=== PATIENT | female | born 1985 | race Caucasian/White ===

== ENCOUNTER 2020-02-09 16:27 | Emergency (ER) | payer OTHER, SELFPAY ==
[2020-02-09 16:39] VITALS: BP 133/81; PULSE 68; RESP 16; TEMP 37; O2SAT 100
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
[2020-02-09] MEDS: SILVER SULFADIAZINE 1% CR 50 GM JAR (*BKC) 1 APPLIC TOPICAL (17:04)
== END 2020-02-09 17:21 | disposition home or self-care (01) ==
PROVIDERS: Emergency Provider Nurse Practitioner Family
DX: T22.212A Burn of second degree of left forearm, initial encounter (principal); X13.1XXA Other contact with steam and other hot vapors, initial encounter; Y93.G3 Activity, cooking and baking
CPT/HCPCS: 16020; 99213; A9270; G0463

== ENCOUNTER 2020-08-06 14:56 | Emergency (ER) | payer OTHER, SELFPAY ==
[2020-08-06 15:26] VITALS: BP 124/68; PULSE 72; RESP 16; TEMP 36.4; O2SAT 99
--- NOTE | 2020-08-06 15:35 | ED.GENADULT ---
HPI - General Adult General Chief complaint: Skin/Abscess/Foreign Body Stated complaint: POISON TABITHA Time Seen by Provider: 08/06/20 15:35 Source: patient and RN notes reviewed Mode of arrival: ambulatory Limitations: no limitations History of Present Illness HPI narrative: 35-year-old female presents with complaints of red, raised, itching, burning, rash to right forearm and mid forehead for 1 day. Tyra reports outside doing yard work on 08/03/20, 2 days later rash appeared and spreading. Calamine lotion without relief. Denies new detergent, personal hygiene products, or laundry detergent. No new foods or medications. No swelling, bleeding, or drainage. Denies fever, headaches, malagia, facial swelling, or tongue swelling. Tolerating po intake well. Denies chest pain or dyspnea. LMP hysterectomy. Remains active. The patient reports she was diagnosed with COVID-19 May 16, 2020. The patient reports she is not waiting for the results of a COVID-19 lab test. The patient reports she do not have chills, weakness, or fatigue. The patient reports she do not have a new or worsening cough or shortness of breath. The patient reports she do not have any rhinorrhea, congestion, sore throat, loss of taste or smell, nausea, vomiting, abdominal pain, and diarrhea. Denies recent traveling. Denies concerns for COVID-19 or exposures been home with limited outdoor exposure except for essential household needs, work, and return home. At this time, patient is not suspected of having COVID-19. Some parts of this dictation were generated by voice recognition software and may contain typographical and/or grammatical inaccuracies. Related Data Allergies Allergy/AdvReac Type Severity Reaction Status Date / Time No Known Allergies Allergy Mild Verified 02/09/20 16:43 Review of Systems Review of Systems: Narrative: CONSTITUTIONAL: Denies fever, chills, sweats. EYES: Denies visual changes, redness, discharge. ENT: Denies rhinorrhea, congestion, sore throat, otalgia. CARDIOVASCULAR: Denies chest pain, palpitations, edema. RESPIRATORY: Denies dyspnea, wheezing, cough. GASTROINTESTINAL: Denies abdominal pain, nausea, vomiting, diarrhea. SKIN: Complains of red, burning, and itching rash to RT forearm and mid forehead. Denies drainage. MUSCULOSKELETAL: Denies acute back pain, joint pain, or myalgia. NEUROLOGIC: Denies numbness or focal weakness. PSYCHIATRIC: Denies anxiety or depression. All other systems reviewed are negative, except as documented in HPI. [facility] Past Medical History Medical History (Updated 08/06/20 @ 15:49 by KIAN Mclain) Carpal tunnel syndrome Cervical cancer Surgical History Surgical History (Updated 02/09/20 @ 17:31 by KIAN Mclain) History of ankle surgery LT History of carpal tunnel surgery Bilateral History of hysterectomy History of right knee surgery Meniscus Family History Family History (Updated 08/06/20 @ 15:47 by KIAN Mclain) Father Alive and well Mother Cervical cancer Social History Social History (Updated 08/06/20 @ 15:47 by KIAN Mclain) Smoking status: Never smoker Tobacco type: cigarettes Second hand tobacco smoke exposure: No Alcohol intake: current Substance use: never Living arrangements: with family Occupation/Education: occupation Gender identity (if verbalized by the patient): Female Sexual Orientation (if Verbalized by the Patient): Straight or Heterosexual Comments At time of signature, agree with nurse past medical, surgical, social, and family history. There is no relevant family history pertinent to the presenting complaint. Exam Narrative: Exam Narrative: GENERAL: This is a well-nourished, well-developed patient, in no apparent distress. Talks in full sentences and ambulates with steady gait without dyspnea. HEAD: Normocephalic, atraumatic. EYES: PERRL. Sclera clear/white. Vision is grossly i
[2020-08-06] MEDS: methylPREDNISolone SOD SUCC 125 MG VIAL IM (15:46)
== END 2020-08-06 16:06 | disposition home or self-care (01) ==
PROVIDERS: Emergency Provider Nurse Practitioner Family; PCP Nurse Practitioner Family
DX: L23.7 Allergic contact dermatitis due to plants, except food (principal); Z85.41 Personal history of malignant neoplasm of cervix uteri
CPT/HCPCS: 96372; 99213; G0463; J2930

== ENCOUNTER 2021-03-01 10:13 | Emergency (ER) | payer OTHER, SELFPAY ==
[2021-03-01 10:22] VITALS: BP 122/81; PULSE 67; RESP 16; TEMP 36.6; O2SAT 100
--- NOTE | 2021-03-01 10:22 | ED.SKABFB ---
HPI - Skin/Abscess/Foreign Bdy General Chief complaint: Skin/Abscess/Foreign Body Stated complaint: rt thumb pos infection Time Seen by Provider: 03/01/21 10:22 Source: patient and RN notes reviewed Mode of arrival: ambulatory Limitations: no limitations History of Present Illness HPI narrative: 36-year-old female presents to the [facility] with complaints of pain and swelling to the right thumb. States on , 3 days ago poked herself with a paperclip. Had been applying Neosporin. Has full range of motion, tenderness and swelling noted lateral thumb. Fluctuant area. Related Data Allergies Allergy/AdvReac Type Severity Reaction Status Date / Time No Known Allergies Allergy Mild Verified 03/01/21 10:33 Review of Systems Review of Systems: All systems reviewed & are unremarkable except as noted in HPI and below Constitutional: Constitutional: Reports no additional constitutional complaints, Denies chills and Denies fever(s) Eyes: Eyes: Reports no additional eye complaints ENT: Reports system reviewed and no additional complaints, except as documented Cardiovascular: Cardiovascular: Reports no additional cardiovascular complaints Respiratory: Respiratory: Reports no additional respiratory complaints Musculoskeletal: Musculoskeletal: Reports no additional musculoskeletal complaints Integumentary/Breasts: Skin/Breast: Reports as per HPI and Reports erythema (right lateral thumb) Neurologic: Reports system reviewed and no additional complaints, except as documented Psychiatric: Psychiatric: Reports no additional psychiatric complaints Allergic/Immunologic: Allergic/Immunologic: Reports no additional allergic/immunologic complaints [facility] Past Medical History Medical History (Updated 03/01/21 @ 10:54 by Maribel Kasper) Carpal tunnel syndrome Cervical cancer Surgical History Surgical History History of ankle surgery LT History of carpal tunnel surgery Bilateral History of hysterectomy History of right knee surgery Meniscus Family History Family History Father Alive and well Mother Cervical cancer Social History Social History Smoking status: Never smoker Tobacco type: cigarettes Second hand tobacco smoke exposure: No Alcohol intake: current Substance use: never Gender identity (if verbalized by the patient): Female Sexual Orientation (if Verbalized by the Patient): Straight or Heterosexual Comments At the time of my signature, I reviewed and agree with the nursing past medical, surgical, social, and family history. There is no relevant family history pertinent to the patient complaint. Exam Const: General: healthy appearing, no acute distress and alert Nutritional Appearance: well nourished Orientation/consciousness: patient oriented x3 Limitations: no limitations HENMT: Head: normal to inspection Eyes: Conjunctivae: conjunctivae normal Pupils: Equal, round and reactive pupils present Neck: Neck: normal visual inspection Chest: Chest palpation & inspection: normal inspection of the chest Resp: Effort & Inspection: normal respiratory effort Cardio: Rate: regular rate Back/Spine/Pelvis: Back: no CVA tenderness Skin: General skin exam: normal color Wounds: wounds noted Other: Right lateral distal thumb, paronychia Neuro: General: patient oriented x3, moves all extremities, no meningeal signs and no focal motor deficits Speech: normal speech Gait exam (Neuro): Normal gait present Extrem: General: normal to inspection Psych: Appearance: grossly normal and well kempt Mental Status: mental status grossly normal Affect: normal affect Attitude: cooperative Thought content: Yes Normal thought content present Course Course Emergency Course: Discharge instructions reviewed with patient, as well as provided in writing p
[2021-03-01] MEDS: LIDOCAINE HCL 1% LOCAL INJ 20 ML VIAL 5 ML INFILTRATE (10:55)
== END 2021-03-01 11:12 | disposition home or self-care (01) ==
PROVIDERS: Emergency Provider Nurse Practitioner
DX: L03.011 Cellulitis of right finger (principal); Z85.41 Personal history of malignant neoplasm of cervix uteri
CPT/HCPCS: 10060; 87070; 87075; 87205; 99213; G0463

== ENCOUNTER 2021-04-28 12:03 | Emergency (ER) | payer OTHER, SELFPAY ==
[2021-04-28 12:32] VITALS: BP 126/81; PULSE 81; RESP 16; TEMP 36.3; O2SAT 98
--- NOTE | 2021-04-28 13:23 | ED.FEMALEGU ---
HPI - Female Genitourinary General Chief complaint: Urogenital-Female Stated complaint: uti Time Seen by Provider: 04/28/21 13:23 Source: patient and RN notes reviewed Mode of arrival: ambulatory Limitations: no limitations History of Present Illness HPI Narrative: 36-year-old female presents concern for possible urinary tract infection. Reports several days ago she had burning with urination, she reports she since has had the frequent feeling of having to go without a full bladder. She denies back pain, abdominal pain, fever, nausea, vomiting. Reports history of urinary tract infection. MD elicited complaint: UTI Related Data Allergies Allergy/AdvReac Type Severity Reaction Status Date / Time Sulfa (Sulfonamide AdvReac Abdominal Verified 04/28/21 12:52 Antibiotics) Pain Review of Systems Review of Systems: CONSTITUTIONAL: Denies malaise, chills, sweats, or fever. GASTROINTESTINAL: Denies abdominal pain, nausea, vomiting, diarrhea, bloody, or mucous stools. GENITOURINARY: Denies dysuria or hematuria. Reports urine frequency, suprapubic pressure SKIN: Denies rash or itching. MUSCULOSKELETAL: Denies back pain or myalgia. All systems reviewed & are unremarkable except as noted in HPI and below PMFSH Past Medical History Medical History (Updated 04/28/21 @ 13:37 by Maribel Rooney NP) Carpal tunnel syndrome Cervical cancer Surgical History Surgical History History of ankle surgery LT History of carpal tunnel surgery Bilateral History of hysterectomy History of right knee surgery Meniscus Family History Family History Father Alive and well Mother Cervical cancer Social History Social History Smoking status: Never smoker Tobacco type: cigarettes Second hand tobacco smoke exposure: No Alcohol intake: current Substance use: never Gender identity (if verbalized by the patient): Female Sexual Orientation (if Verbalized by the Patient): Straight or Heterosexual Comments At time of signature, agree with nursing past medical, surgical, social and family history. There is no relevant family history pertinent to the presenting complaint Exam Narrative: GENERAL: Well-appearing, well-nourished, and in no acute distress. HEAD: Normocephalic. EYES: PERRLA, conjunctivae clear. NECK: Supple. No lymphadenopathy CHEST: Clear to auscultation. No respiratory distress. HEART: Regular rate and rhythm. ABDOMEN: Soft, nontender upon palpation, nondistended, normal active bowel sounds, no palpable or pulsatile masses, no guarding. No CVA tenderness SKIN: Warm, dry, no rash. NEURO: Alert and oriented x3. PSYCH: Normal mood and affect Course Course Emergency Course: Patient is aware of diagnosis, understands and agrees to treatment plan. Anticipatory guidance given. Patient agrees to follow-up as directed and is aware of reasons to seek care at the emergency department. Portions of this record may have been created with voice recognition software Vital Signs Vital signs: Vital Signs Temperature 97.3 F L 04/28/21 12:32 Pulse Rate 81 04/28/21 12:32 Respiratory Rate 16 04/28/21 12:32 Blood Pressure 126/81 04/28/21 12:32 Pulse Oximetry 98 04/28/21 12:32 Temperature 97.3 F L 04/28/21 12:32 Pulse Rate 81 04/28/21 12:32 Respiratory Rate 16 04/28/21 12:32 Blood Pressure 126/81 04/28/21 12:32 Pulse Oximetry 98 04/28/21 12:32 Reviewed. MDM - Female Genitourinary MDM Narrative Medical decision making narrative: Exam findings and UA show no acute concerns or changes; patient is non-toxic appearing and is in no distress. Patient is appropriate for outpatient treatment and follow-up. Differential Diagnosis Differential diagnosis: Likely urinary tract infection and cystitis Lab Data Labs: Urine Glucose Trac
== END 2021-04-28 13:45 | disposition home or self-care (01) ==
PROVIDERS: Emergency Provider Nurse Practitioner
DX: R30.0 Dysuria (principal)
CPT/HCPCS: 81003; 87086; 87088; 99213; G0463

== ENCOUNTER 2021-10-26 18:05 | Emergency (ER) | payer OTHER, SELFPAY ==
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
[2021-10-26 18:12] VITALS: BP 121/87; PULSE 73; RESP 16; TEMP 36.3; O2SAT 100
--- NOTE | 2021-10-26 18:46 | ED.UPPEXIN ---
HPI - Extremity Injury (Upper) General Chief Complaint: Extremity Injury, Upper Stated Complaint: Right Hand Pain Time Seen by Provider: 10/26/21 18:46 Source: patient Mode of arrival: ambulatory Limitations: no limitations History of Present Illness HPI narrative: 36-year-old female presented for complaint of right hand pain after injury today. She states she dropped a concrete landscaping block on the top of the right hand. Denies decreased range of motion, decreased sensation or numbness, tingling, or weakness of the hand. States pain is minimal. She states she wanted it evaluated because it started bruising quickly Related Data Home Medications Medication Instructions Recorded Confirmed fluoxetine 10 mg capsule cap 10/26/21 Allergies Allergy/AdvReac Type Severity Reaction Status Date / Time Sulfa (Sulfonamide AdvReac Abdominal Verified 04/28/21 12:52 Antibiotics) Pain Review of Systems Review of Systems: CONSTITUTIONAL: Denies body aches, fever, chills CARDIOVASCULAR: Denies chest pain, palpitations, or edema. RESPIRATORY: Denies cough or dyspnea. SKIN: Denies rash, itching, or wounds. MUSCULOSKELETAL: Reports right hand pain. NEUROLOGIC: Denies headache, numbness, tingling, or weakness. PSYCH: Denies depression or anxiety. All systems reviewed & are unremarkable except as noted in HPI and below PMFSH Past Medical History Medical History Carpal tunnel syndrome Cervical cancer Surgical History Surgical History History of ankle surgery LT History of carpal tunnel surgery Bilateral History of hysterectomy History of right knee surgery Meniscus Family History Family History Father Alive and well Mother Cervical cancer Social History Social History Smoking status: Never smoker Tobacco type: cigarettes Second hand tobacco smoke exposure: No Alcohol intake: current Substance use: never Gender identity (if verbalized by the patient): Female Sexual Orientation (if Verbalized by the Patient): Straight or Heterosexual Comments At time of signature, I have reviewed and agree with nursing past medical, surgical, social and family history unless otherwise noted. Please see nursing chart for further information. There is no relevant family history pertinent to the presenting complaint Exam Narrative: GENERAL: Well-appearing HEAD: Normocephalic, atraumatic. CHEST: Speaks in full sentences. No respiratory distress. HEART: Regular rate and rhythm. Normal and equal peripheral pulses. EXTREMITIES: Right hand has normal strength and sensation, normal range of motion. Moderate bruising over the dorsal surface of the hand. No edema. Mild point tenderness over distal 3rd metacarpal. No open wounds, skin tenting, or obvious deformity; alignment normal, pulse palpable and equal bilaterally, skin warm, dry, pink. Capillary refill less than 3 seconds. SKIN: Warm, dry, no rash. NEURO: Alert and oriented x3. PSYCH: Normal mood and affect Course Course Emergency Course: Patient is aware of diagnosis, understands and agrees to treatment plan. Anticipatory guidance given. Patient agrees to follow-up as directed and is aware of reasons to seek care at the emergency department. Portions of this record may have been created with voice recognition software Level of Care: Express Care Visit Vital Signs Vital signs: Vital Signs Temperature 97.3 F L 10/26/21 18:12 Pulse Rate 73 10/26/21 18:12 Respiratory Rate 16 10/26/21 18:12 Blood Pressure 121/87 10/26/21 18:12 Pulse Oximetry 100 10/26/21 18:12 Oxygen Delivery Room Air 10/26/21 18:12 Temperature 97.3 F L 10/26/21 18:12 Pulse Rate 73 10/26/21 18:12 Respiratory Rate 16 10/26/21
== END 2021-10-26 18:59 | disposition home or self-care (01) ==
PROVIDERS: Emergency Provider Nurse Practitioner Family; PCP Nurse Practitioner Adult Health
DX: S60.221A Contusion of right hand, initial encounter (principal); W20.8XXA Other cause of strike by thrown, projected or falling object, initial encounter; Z85.41 Personal history of malignant neoplasm of cervix uteri
CPT/HCPCS: 73130; 99213; G0463

== ENCOUNTER 2022-01-02 01:36 | Emergency (ER) | payer OTHER, SELFPAY ==
--- NOTE | ~2022-01-02 | XR_ITS ---
EXAMINATION: XR shoulder RT min 2V DATE: 01/02/2022 02:16 INDICATION: Right shoulder injury. TECHNIQUE: 4 views of right shoulder were obtained. COMPARISON: None. FINDINGS: Bone alignment is normal. No fracture. There is mild osteoarthritis of glenohumeral joint. Acromioclavicular joint is normal. IMPRESSION: 1. Mild glenohumeral joint osteoarthritis. Reviewed, dictated and finalized at location A.
--- NOTE | ~2022-01-02 | CT_ITS ---
EXAMINATION: CT cervical spine wo con DATE: 01/02/2022 02:13 INDICATION: Pain radiating from the right shoulder to the neck. Fall. TECHNIQUE: Computed tomography (CT) of the cervical spine was performed without intravenous contrast. Automated exposure control and iterative reconstruction technique were employed. The dose-length pro duct was 383.62 mGy-cm. COMPARISON: None FINDINGS: There is kyphosis of cervical spine. There is 5 degrees dextrocurvature of cervical spine. Vertebral body heights and intervertebral disc heights are normal. At C7-T1, there is moderate right and severe left facet joint osteoarthritis. No neural foraminal stenosis. There is mild central canal stenosis at C5-C6. IMPRESSION: 1. No fracture. 2. Mild cervical spondylosis. Reviewed, dictated and finalized at location A.
[2022-01-02 01:40] VITALS: BP 127/89; PULSE 78; RESP 16; TEMP 37; O2SAT 99
[2022-01-02] MEDS: HYDROcodone/acetaminophen (*CRX) 5-325 MG TABLET 1 TAB PO (01:48)
--- NOTE | 2022-01-02 01:58 | ED.FALL ---
HPI - Fall General Chief Complaint: Extremity Injury, Upper Stated Complaint: right shoulder pain after fall Time Seen by Provider: 01/02/22 01:38 Source: RN notes reviewed History of Present Illness HPI Narrative: Patient presents emergency room from home for right shoulder and neck pain. Patient states that just prior to arrival she was walking on the stairs when she tripped over the second to last stair and fell down 2 stairs states she landed down on her right shoulder notes pain in her right shoulder pain is worse with any movement of the right shoulder patient states she did hit her head but did not have any loss of consciousness denies any headache denies any chest pain shortness of breath or any other injuries. States pain is located in the right shoulder she denies any elbow or wrist Related Data Home Medications Medication Instructions Recorded Confirmed fluoxetine 10 mg capsule cap 10/26/21 Allergies Allergy/AdvReac Type Severity Reaction Status Date / Time Sulfa (Sulfonamide AdvReac Abdominal Verified 01/02/22 01:43 Antibiotics) Pain Review of Systems Review of Systems: Gen.: Denies fevers or chills ENT: Denies congestion Respiratory: Denies shortness of breath or cough CV: Denies chest pain GI: Denies abdominal pain nausea, emesis or diarrhea Musculoskeletal: See HPI Neuro: Denies numbness, tingling, weakness or focal weakness Skin: Denies rash Except as documented, all other systems reviewed and negative PMF Past Medical History Medical History Carpal tunnel syndrome Cervical cancer Surgical History Surgical History History of ankle surgery LT History of carpal tunnel surgery Bilateral History of hysterectomy History of right knee surgery Meniscus Family History Family History Father Alive and well Mother Cervical cancer Social History Social History Smoking status: Never smoker Tobacco type: cigarettes Second hand tobacco smoke exposure: No Alcohol intake: current Substance use: never Gender identity (if verbalized by the patient): Female Sexual Orientation (if Verbalized by the Patient): Straight or Heterosexual Exam Narrative: APPEARANCE: No acute distress, nontoxic, resting in bed EYES: EOMI HEENT: Normocephalic, atraumatic, OMM Neck: Supple no midline tenderness palpation, tender palpation right perigee muscles C5-7 RESPIRATORY: No respiratory distress Clear to auscultation bilaterally with no rhonchi wheezing or rales. CARDIOVASCULAR: Regular rate and rhythm without murmurs rubs or gallops. ABDOMINAL: Soft, nontender, nondistended, no rebound or guarding MUSCULOSKELETAl: Moves all extremities. No clubbing, cyanosis or edema. Tenderness palpation diffusely over the right shoulder pain with any movement right shoulder no tenderness right elbow or wrist radial pulse 2+ neurovascular intact NEURO: Awake and alert x 4 Following commands, speech normal, no focal deficits SKIN:: Warm, dry. No rashes lesions or abrasions PSYCHIATRIC: Normal affect/mood, Course Course Emergency Course: Discussed with patient results of workup and diagnosis. Discussed need for follow-up with primary care, proper use of medication, and reasons to return to the emergency department. Patient understands and agrees to current treatment plan Vital Signs Vital signs: Vital Signs Temperature 98.6 F 01/02/22 01:40 Pulse Rate 78 01/02/22 01:40 Respiratory Rate 16 01/02/22 01:40 Blood Pressure 127/89 01/02/22 01:40 Pulse Oximetry 99 01/02/22 01:40 Oxygen Delivery Room Air 01/02/22 01:40 Temperature 98.6 F 01/02/22 01:40 Pulse Rate 74 01/02/22 03:12 Respiratory Rate 17 01/02/22 03:12 Blood Pressure 111/76 01/02/22 03:12 Pulse
--- NOTE | 2022-01-02 02:30 | PC.NURSE ---
Patient states pain is still at a 10, still throbbing. ERP notified.
[2022-01-02 03:12] VITALS: BP 111/76; PULSE 74; RESP 17; O2SAT 97
--- NOTE | 2022-01-02 03:15 | PC.NURSE ---
Patient given ice pack upon request. Patient states her pain is still 10/10. ERP notified.
[2022-01-02] MEDS: IBUPROFEN 600 MG TABLET PO (03:18)
--- NOTE | 2022-01-02 04:21 | PC.NURSE ---
VIRGINIE apply arm sling to Right arm per .
== END 2022-01-02 04:36 | disposition home or self-care (01) ==
PROVIDERS: Emergency Provider Emergency Medicine; PCP Nurse Practitioner Adult Health
DX: S16.1XXA Strain of muscle, fascia and tendon at neck level, initial encounter (principal); S40.011A Contusion of right shoulder, initial encounter; Z85.41 Personal history of malignant neoplasm of cervix uteri; W10.9XXA Fall (on) (from) unspecified stairs and steps, initial encounter
CPT/HCPCS: 72125; 73030; 99284; A4565; A9270

== ENCOUNTER 2022-01-31 10:40 | Emergency (ER) | payer OTHER, SELFPAY ==
[2022-01-31 10:48] VITALS: BP 123/81; PULSE 77; RESP 16; TEMP 35.9; O2SAT 100
[2022-01-31 10:49] VITALS: BP 123/81; PULSE 77; RESP 16; TEMP 35.9; O2SAT 100
--- NOTE | 2022-01-31 10:59 | ED.FEMALEGU ---
HPI - Female Genitourinary General Chief complaint: Urogenital-Female Stated complaint: UTI Time Seen by Provider: 01/31/22 10:55 Source: patient Mode of arrival: ambulatory Limitations: no limitations History of Present Illness HPI Narrative: Ms. Cabrales is a 37-year-old female patient presenting to the clinic today with complaints of dysuria and feeling of having an empty bladder since Tuesday. She denies any fever or chills. She denies any abdominal pain or flank pain. She denies any vaginal discharge. She denies any new sexual partners. she has a history of a hysterectomy in 2010 Related Data Home Medications Medication Instructions Recorded Confirmed fluoxetine 10 mg capsule 10 cap PO DAILY 10/26/21 01/31/22 Allergies Allergy/AdvReac Type Severity Reaction Status Date / Time Sulfa (Sulfonamide AdvReac Abdominal Verified 01/31/22 10:44 Antibiotics) Pain Review of Systems Review of Systems: Pertinent positives per HPI. Patient denies any fever, chills, rash, headache, visual changes, dizziness, cough, runny nose, sore throat, shortness of breath, chest pain, palpitations, nausea, vomiting, diarrhea, constipation, abdominal pain. PMFSH Past Medical History Medical History Carpal tunnel syndrome Cervical cancer Surgical History Surgical History History of ankle surgery LT History of carpal tunnel surgery Bilateral History of hysterectomy History of right knee surgery Meniscus Family History Family History Father Alive and well Mother Cervical cancer Social History Social History Smoking status: Never smoker Tobacco type: cigarettes Second hand tobacco smoke exposure: No Alcohol intake: current Substance use: never Gender identity (if verbalized by the patient): Female Sexual Orientation (if Verbalized by the Patient): Straight or Heterosexual Comments At the time of my signature, I reviewed and agree with the nursing past medical, surgical, social, and family history. There is no relevant family history pertinent to the patient complaint. Exam Narrative: General: Well-developed, well nourished, in no apparent distress. Head: Normocephalic, atraumatic. Cardio: Regular rate and rhythm, s1 and s2 normal, no murmur appreciated. Resp: Clear to auscultation bilaterally, no rhonchi, rales, wheezing or rubs. Abdomen: Soft, pliable, bowel sounds present in all quadrants, non-tender to palpation, no organomegly, no CVAT tenderness. Course Course Emergency Course: Portions of this record may have been created with voice recognition software. Level of Care: Express Care Visit Vital Signs Vital signs: Vital Signs Temperature 35.9 C L 01/31/22 10:48 Pulse Rate 77 01/31/22 10:48 Respiratory Rate 16 01/31/22 10:48 Blood Pressure 123/81 01/31/22 10:48 Pulse Oximetry 100 01/31/22 10:48 Oxygen Delivery Room Air 01/31/22 10:48 Temperature 35.9 C L 01/31/22 10:49 Pulse Rate 77 01/31/22 10:49 Respiratory Rate 16 01/31/22 10:49 Blood Pressure 123/81 01/31/22 10:49 Pulse Oximetry 100 01/31/22 10:49 Oxygen Delivery Room Air 01/31/22 10:49 Vital signs reviewed MDM - Female Genitourinary MDM Narrative Medical decision making narrative: At the time of visit patient is resting comfortably on the exam table. Urinalysis was completed and she had 2+ leukocyte, 2+ blood, and a trace of protein. Patient denies any fever and she did not have any CVAT tenderness or lower abdominal pain in the clinic today we will send urine for culture and place patient on Macrobid. Supportive measures were discussed with the patient and she voiced understanding of discharge instructions and agrees to treatment plan. Differential Diagnosis
== END 2022-01-31 11:09 | disposition home or self-care (01) ==
PROVIDERS: Emergency Provider Nurse Practitioner Family; PCP Nurse Practitioner Adult Health
DX: N39.0 Urinary tract infection, site not specified (principal); Z85.41 Personal history of malignant neoplasm of cervix uteri
CPT/HCPCS: 81003; 87077; 87086; 87186; 99213; G0463

== ENCOUNTER 2022-07-08 09:26 | Emergency (ER) | payer OTHER, SELFPAY ==
--- NOTE | ~2022-07-08 | CT_ITS ---
Non-contrast Head CT History: Head injury Technique: Axial non-contrast imaging of the brain was performed. Dose reduction technique was used on this scan by utilizing automated exposure control and iterative reconstruction technique. The dose -length product (DLP) was 605.33 mGy-cm. Findings: There is no evidence of intracranial hemorrhage, mass lesion, or acute infarct. Brain par enchyma appears normal. The ventricles and subarachnoid spaces are normal in size. The calvarium ap pears normal. The visualized paranasal sinuses and mastoid air cells are clear. Impression: No significant abnormality seen. Reviewed, dictated and finalized at [facility]. GER GAMING Impression: No significant abnormality seen.
[2022-07-08 09:30] VITALS: BP 131/86; PULSE 67; RESP 18; TEMP 36.1; O2SAT 100
--- NOTE | 2022-07-08 09:30 | ED.FALL ---
HPI - Fall General Chief Complaint: Head Injury Stated Complaint: head injury two days ago with dizziness Time Seen by Provider: 07/08/22 09:29 Source: patient Mode of arrival: ambulatory Limitations: no limitations History of Present Illness HPI Narrative: Patient is a 37-year-old female presenting to the emergency department for evaluation of headache, nausea, dizziness following a ground-level fall 2 days ago. Patient was walking her dog when her dog lunged after a squirrel, causing her to fall forward and hit her head on the pavement. Patient without loss of conscious. She does report an abrasion overlying her head as well as bruising to the right ear and forehead. Patient reports mild aching headache of the right head without thunderclap sensation. She denies any current vision loss. She reports nausea without vomiting as well as dizziness that awaken her from sleep. Patient denies any current dizziness when sitting still but does report increased dizziness with movement. She denies midline cervical neck pain, lower back pain or extremity pain or injury. Patient denies focal weakness or numbness. She denies chest pain, lightheadedness, palpitations. Related Data Home Medications Medication Instructions Recorded Confirmed fluoxetine 10 mg capsule 10 cap PO DAILY 10/26/21 01/31/22 Allergies Allergy/AdvReac Type Severity Reaction Status Date / Time Sulfa (Sulfonamide AdvReac Abdominal Verified 07/08/22 09:27 Antibiotics) Pain Review of Systems Review of Systems: CONSTITUTIONAL: Denies fever, chills, or sweats. EYES: Denies visual changes, redness, or discharge. ENT: Denies rhinorrhea, congestion, sore throat, does report right ear pain and bruising CARDIOVASCULAR: Denies chest pain, palpitations, or edema. RESPIRATORY: Denies cough or dyspnea. GASTROINTESTINAL: Denies abdominal pain, nausea, vomiting, or diarrhea. GENITOURINARY: Denies dysuria or hematuria. SKIN: Denies rash or itching. MUSCULOSKELETAL: Denies back pain, joint pain, or myalgia. NEUROLOGIC: Reports headache, denies focal numbness or weakness, reports dizziness PMFSH Past Medical History Medical History Carpal tunnel syndrome Cervical cancer Surgical History Surgical History History of ankle surgery LT History of carpal tunnel surgery Bilateral History of hysterectomy History of right knee surgery Meniscus Family History Family History Father Alive and well Mother Cervical cancer Social History Social History Smoking status: Never smoker Tobacco type: cigarettes Second hand tobacco smoke exposure: No Alcohol intake: current Substance use: never Living arrangements: with family Occupation/Education: occupation Gender identity (if verbalized by the patient): Female Sexual Orientation (if Verbalized by the Patient): Straight or Heterosexual Exam Narrative: GENERAL: Awake, alert, conversant HEAD: Normocephalic, hematoma to forehead EYES: PERRLA and EOMI. ENT: Nares clear, no rhinorrhea or epistaxis. Mucous membranes moist. There is ecchymosis of the right pinna. No auricular hematoma. Tympanic membranes are clear with intact light reflex, no effusion, edema, or hemotympanum bilaterally. NECK: Supple. CHEST: No respiratory distress, breathing even and non labored HEART: Regular rate, sinus rhythm ABDOMEN:Non distended, non tender EXTREMITIES: Normal range of motion. No edema. SKIN: Warm, dry, no rash. NEURO:No focal deficits. Alert and oriented x3. . EOMs intact without nystagmus. No facial droop/asymmetry noted bilaterally. Grimace intact. Intact sensation in face. Hearing intact bilaterally. Shoulder shrug intact. Strength 5/5 bilateral upper extremities. Strength 5/5 bilateral lower extre
--- NOTE | 2022-07-08 09:46 | ECG_ITS ---
Measurements Intervals [place] Rate: 56 P: 28 DC: 140 QRS: -7 QRSD: 84 T: 8 QT: 396 QTc: 385 Interpretive Statements SINUS BRADYCARDIA WITH SINUS ARRHYTHMIA NONSPECIFIC T-WAVE ABNORMALITY BORDERLINE ECG NO PREVIOUS ECG AVAILABLE FOR COMPARISON Electronically Signed On 07-08-2022 10:09:53 NURSERY LABORER by Abilio Ortiz M.D.
[2022-07-08] MEDS: ONDANSETRON INJ 4 MG/2 ML VIAL IV PUSH (10:07)
[2022-07-08] MEDS: MECLIZINE HCL 25 MG TABLET PO (10:07)
[2022-07-08] MEDS: ACETAMINOPHEN 500 MG TABLET 1000 MG PO (10:07)
[2022-07-08] MEDS: SODIUM CHLORIDE 0.9% IV 1,000 ML 999 ML IV CONT (10:07)
[2022-07-08 10:13] LABS: Basophils Absolute Auto 0.1 K/mm3 (0.0-0.1); Basophils Percent Auto 0.6 % (0.2-1.2); Eosinophils Absolute Auto 0.1 K/mm3 (0-0.3); Eosinophils Percent Auto 1.5 % (0-4.4); Hematocrit 41.3 % (37.0-47.0); Immature Granulocyte Absolute 0.02 K/mm3 (0.00-0.031); Immature Granulocyte Percent A 0.2 % (0-0.5); Lymphocytes Absolute Auto 1.43 K/mm3 (0.9-3.2); Lymphocytes Percent Auto 17.9 % (18.3-44.2); Mean Corpuscular HGB Conc 33.9 g/dl (32-36); Mean Corpuscular Hemoglobin 30.4 pg (26-34); Mean Corpuscular Volume 89.6 fl (80-100); Mean Platelet Volume 11.5 fl (7.4-10.4); Monocytes Absolute Auto 0.5 K/mm3 (0.1-0.6); Monocytes Percent Auto 6.7 % (2.6-8.5); Neutrophils Absolute Auto 5.9 K/mm3 (1.3-6.7); Neutrophils Percent Auto 73.1 % (45.5-73.1); Platelet Count Result 232 k/mm3 (150-375); Red Blood Count 4.61 M/mm3 (4.2-5.4); Red Cell Distribution Width 12.5 % (11.5-14.5)
[2022-07-08 10:26] LABS: Anion Gap 6 mmol/L (8-16); Blood Urea Nitrogen 11 mg/dL (7-17); Calcium 9.1 mg/dL (8.4-10.2); Carbon Dioxide 27 mmol/L (22-30); Chloride 104 mmol/L (98-107); Estimated CRCL calculation 74 ml/min; Estimated Glomerular Filt Rate > 60; Glucose 97 mg/dL (65-110); Potassium 3.8 mmol/L (3.4-5.0); Sodium 137 mmol/L (137-145)
[2022-07-08 11:26] VITALS: PULSE 86; RESP 16; O2SAT 100
== END 2022-07-08 11:25 | disposition home or self-care (01) ==
PROVIDERS: Emergency Provider Emergency Medicine; PCP Physician Assistant
DX: F07.81 Postconcussional syndrome (principal); Z85.41 Personal history of malignant neoplasm of cervix uteri; Z90.710 Acquired absence of both cervix and uterus; R00.1 Bradycardia, unspecified; R94.31 Abnormal electrocardiogram [ECG] [EKG]
CPT/HCPCS: 36415; 70450; 80048; 85025; 93005; 96361; 96374; 99284; A9270; J2405; J7030

== ENCOUNTER 2022-10-11 16:55 | Emergency (ER) | payer OTHER, SELFPAY ==
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
[2022-10-11 17:13] VITALS: BP 121/82; PULSE 80; RESP 18; TEMP 36.9; O2SAT 98
== END 2022-10-11 17:16 | disposition home or self-care (01) ==
PROVIDERS: Emergency Provider Physician Assistant; PCP Physician Assistant
DX: G44.309 Post-traumatic headache, unspecified, not intractable (principal); F07.81 Postconcussional syndrome; Z85.41 Personal history of malignant neoplasm of cervix uteri; Z90.710 Acquired absence of both cervix and uterus
CPT/HCPCS: 99283

== ENCOUNTER 2022-10-18 13:13 | Emergency (ER) | payer OTHER, SELFPAY ==
--- NOTE | ~2022-10-18 | XR_ITS ---
EXAMINATION: XR elbow LT min 3V DATE: 10/18/2022 13:26 INDICATION: Left elbow injury and swelling. TECHNIQUE: 4 views of left elbow were obtained. COMPARISON: None. FINDINGS: Bone alignment is normal. No fracture. There is mild elbow joint osteoarthritis characteriz ed by tiny osteophytes. There is no elbow joint effusion. There is soft tissue swelling overlying ole cranon. IMPRESSION: 1. No fracture. Reviewed, dictated and finalized at location A. IMPRESSION: 1. No fracture.
--- NOTE | 2022-10-18 13:17 | ED.UPPEXIN ---
HPI - Extremity Injury (Upper) General Chief Complaint: Extremity Injury, Upper Stated Complaint: pain in left elbow Time Seen by Provider: 10/18/22 13:16 Source: patient Mode of arrival: ambulatory Limitations: no limitations History of Present Illness HPI narrative: Tyra is a 37-year-old female patient presenting to clinic today with complaints of left elbow pain x4 days. She reports her dog tried to escape out of her house and in the midst of trying to keep them in she smacked her left elbow gets the door frame. Has pain and swelling to the posterior left elbow. Related Data Home Medications Medication Instructions Recorded Confirmed No Home Medications 10/18/22 10/18/22 Allergies Allergy/AdvReac Type Severity Reaction Status Date / Time Sulfa (Sulfonamide AdvReac Abdominal Verified 10/18/22 13:16 Antibiotics) Pain Review of Systems Review of Systems: Pertinent positives per HPI. Patient denies any fever, chills, rash, headache, visual changes, dizziness, cough, runny nose, sore throat, shortness of breath, chest pain, palpitations, nausea, vomiting, diarrhea, constipation, abdominal pain, or any urinary issues. [facility] Past Medical History Medical History Carpal tunnel syndrome Cervical cancer Surgical History Surgical History History of ankle surgery LT History of carpal tunnel surgery Bilateral History of hysterectomy History of right knee surgery Meniscus Family History Family History Father Alive and well Mother Cervical cancer Social History Social History Smoking status: Never smoker Tobacco type: cigarettes Second hand tobacco smoke exposure: No Alcohol intake: current Substance use: never Living arrangements: with family Occupation/Education: occupation Gender identity (if verbalized by the patient): Female Sexual Orientation (if Verbalized by the Patient): Straight or Heterosexual Comments At the time of my signature, I reviewed and agree with the nursing past medical, surgical, social, and family history. There is no relevant family history pertinent to the patient complaint. Exam Narrative: General: Well-developed, well nourished, in no apparent distress Head: Normocephalic, atraumatic. Cardio: Regular rate and rhythm, s1 and s2 normal, no murmur appreciated. Resp: Clear to auscultation bilaterally, no rhonchi, rales, wheezing or rubs. Musculoskeletal: No deformity, moderate swelling noted to the left elbow, tender to palpation with very mild fluctuance, no erythema noted, pain with full flexion and full extension of the left elbow, grossly normal range of motion, muscle strength strong and equal, peripheral pulse strong, no cyanosis, normal gait and station Course Course Emergency Course: Portions of this record may have been created with voice recognition software. Level of Care: Express Care Visit Vital Signs Vital signs: Vital signs reviewed MDM - Extremity Injury (Upper) MDM Narrative Medical decision making narrative: At the time of visit patient is resting on the exam table. X-ray of the left elbow was performed and was negative for any fracture. I suspect patient has left elbow contusion versus bursitis. Supportive measures were discussed with the patient she voiced understanding of discharge instructions and agrees to treatment plan Differential Diagnosis Differential diagnosis: Likely other (Elbow pain, bursitis, elbow fracture, elbow sprain, tendinitis) Imaging Data Radiologist's impression: Close Elbow X-Ray (Signed) Rashid Phan - 10/18/22 [facility] [address] [place] [id number] XRay Report Megan
[2022-10-18 13:20] VITALS: BP 137/85; PULSE 86; RESP 16; TEMP 37.2; O2SAT 100
== END 2022-10-18 13:40 | disposition home or self-care (01) ==
PROVIDERS: Emergency Provider Nurse Practitioner Family; PCP Physician Assistant
DX: M25.522 Pain in left elbow (principal); Z85.41 Personal history of malignant neoplasm of cervix uteri
CPT/HCPCS: 73080; 99213; G0463

== ENCOUNTER 2022-12-03 14:19 | Emergency (ER) | payer OTHER, SELFPAY ==
[2022-12-03 14:28] VITALS: BP 104/70; PULSE 71; RESP 14; TEMP 36.8; O2SAT 100
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
== END 2022-12-03 15:48 | disposition home or self-care (01) ==
PROVIDERS: Emergency Provider Nurse Practitioner; PCP Physician Assistant
DX: S61.412A Laceration without foreign body of left hand, initial encounter (principal); W25.XXXA Contact with sharp glass, initial encounter; Z85.41 Personal history of malignant neoplasm of cervix uteri
CPT/HCPCS: 12001; 99212; G0463

== ENCOUNTER 2023-02-15 10:05 | Emergency (ER) | payer OTHER, SELFPAY ==
--- NOTE | 2023-02-15 10:07 | ED.EAR ---
HPI - Ear Problem General Chief complaint: Upper Respiratory Infection Stated complaint: left ear pain, hurts to swallow Time Seen by Provider: 02/15/23 10:21 Source: patient and RN notes reviewed Mode of arrival: ambulatory Limitations: no limitations History of Present Illness HPI Narrative: 38-year-old female presents concern for left-sided sore throat and ear pain. Reports symptoms started overnight. Reports painful swallowing. She denies nasal congestion, rhinorrhea, fever, aches, chills, sweats. MD Complaint: ear pain and other (Sore throat) Related Data Allergies Allergy/AdvReac Type Severity Reaction Status Date / Time Sulfa (Sulfonamide AdvReac Abdominal Verified 02/15/23 10:14 Antibiotics) Pain Review of Systems Review of Systems: CONSTITUTIONAL: Denies malaise, chills, sweats, or fever. EYES: Denies visual changes, redness, or discharge. ENT: Denies rhinorrhea, congestion, sinus pain. Reports left-sided sore throat. Reports left ear pain CARDIOVASCULAR: Denies chest pain, palpitations, or edema. RESPIRATORY: Denies cough. Denies dyspnea. GASTROINTESTINAL: Denies abdominal pain, nausea, vomiting, diarrhea SKIN: Denies rash or itching. MUSCULOSKELETAL: Denies myalgia. NEUROLOGIC: Denies headache. All systems reviewed & are unremarkable except as noted in HPI and below PMFSH Past Medical History Medical History Carpal tunnel syndrome Cervical cancer Surgical History Surgical History History of ankle surgery LT History of carpal tunnel surgery Bilateral History of hysterectomy History of right knee surgery Meniscus Family History Family History Father Alive and well Mother Cervical cancer Social History Social History Smoking status: Never smoker Tobacco type: cigarettes Second hand tobacco smoke exposure: No Alcohol intake: current Substance use: never Living arrangements: with family Occupation/Education: occupation Gender identity (if verbalized by the patient): Female Sexual Orientation (if Verbalized by the Patient): Straight or Heterosexual Comments At time of signature, agree with nursing past medical, surgical, social and family history. There is no relevant family history pertinent to the presenting complaint Exam Narrative: GENERAL: Well-appearing, well-nourished, and in no acute distress. HEAD: Normocephalic EYES: PERRLA, conjunctivae clear ENT: Nares clear. Mucous membranes moist. TM pearly bishop with sharp light reflex bilaterally; no tragal tenderness. Left side oropharynx erythematous without lesions. Left tonsil enlarged with exudate, no drooling, no hoarseness, no trismus, uvula midline. NECK: Supple. No lymphadenopathy CHEST: Clear to auscultation, breath sounds equal. No wheezing, rhonchi, rales, or stridor. No respiratory distress, speaks in full sentences. HEART: Regular rate and rhythm. No murmur heard. SKIN: Warm, dry, no rash. NEURO: Alert and oriented x3. PSYCH: Normal mood and affect Course Course Emergency Course: Patient is aware of diagnosis, understands and agrees to treatment plan. Anticipatory guidance given. Patient agrees to follow-up as directed and is aware of reasons to seek care at the emergency department. Portions of this record may have been created with voice recognition software Level of Care: Express Care Visit Vital Signs Vital signs: Reviewed. Medical Decision Making MDM Narrative Medical decision making narrative: Differential diagnosis considered: Veliz virus, strep pharyngitis, allergic rhinitis, upper respiratory tract infection, sinusitis, rhinosinusitis, nasopharyngitis. viral pharyngitis, otitis media, otitis externa, otitis effusion, cerumen impaction, fo
[2023-02-15 10:14] VITALS: BP 129/77; PULSE 93; RESP 16; TEMP 36.9; O2SAT 99
== END 2023-02-15 10:33 | disposition home or self-care (01) ==
PROVIDERS: Emergency Provider Nurse Practitioner; PCP Physician Assistant
DX: J03.90 Acute tonsillitis, unspecified (principal)
CPT/HCPCS: 87081; 87880; 99213; G0463

== ENCOUNTER 2025-01-22 13:27 | Emergency (ER) | payer OTHER, SELFPAY ==
--- NOTE | 2025-01-22 13:34 | ED.URI ---
HPI - URI/Sore Throat General Chief Complaint: Upper Respiratory Infection Stated Complaint: ear ache, throat ache Time Seen by Provider: 01/22/25 13:54 Source: patient and RN notes reviewed Mode of arrival: ambulatory Limitations: no limitations History of Present Illness HPI Narrative: 40-year-old female presents concern for left-sided sore throat and ear pain for 1 week. Reports she has used throat lozenges. She denies fever, body aches, chills, sweats. She denies runny nose, stuffy nose, postnasal drainage, headache. MD elicited complaint: sore throat Related Data Allergies Allergy/AdvReac Type Severity Reaction Status Date / Time Sulfa (Sulfonamide AdvReac Abdominal Verified 01/22/25 13:32 Antibiotics) Pain Review of Systems Review of Systems: CONSTITUTIONAL: Denies malaise, chills, sweats, or fever. EYES: Denies visual changes, redness, or discharge. ENT: Denies rhinorrhea, congestion, sinus pain. Reports otalgia and sore throat. CARDIOVASCULAR: Denies chest pain, palpitations, or edema. RESPIRATORY: Denies cough. Denies dyspnea. GASTROINTESTINAL: Denies abdominal pain, nausea, vomiting, diarrhea SKIN: Denies rash or itching. MUSCULOSKELETAL: Denies myalgia. NEUROLOGIC: Denies headache. All systems reviewed & are unremarkable except as noted in HPI and below PMFSH Past Medical History Medical History Carpal tunnel syndrome Cervical cancer Surgical History Surgical History History of ankle surgery LT History of carpal tunnel surgery Bilateral History of hysterectomy History of right knee surgery Meniscus Family History Family History Father Alive and well Mother Cervical cancer Social History Social History Smoking status: Never smoker Tobacco type: cigarettes Second hand tobacco smoke exposure: No Alcohol intake: current Substance use: never Living arrangements: with family Occupation/Education: occupation Gender identity (if verbalized by the patient): Female Sexual Orientation (if Verbalized by the Patient): Straight or Heterosexual Comments At time of signature, agree with nursing past medical, surgical, social and family history. There is no relevant family history pertinent to the presenting complaint Exam Narrative: GENERAL: Well-appearing, well-nourished, and in no acute distress. HEAD: Normocephalic EYES: PERRLA, conjunctivae clear ENT: Nares clear, turbinates edematous and erythematous, clear discharge. Mucous membranes moist. TM pearly bishop with dull light reflex bilaterally; no tragal tenderness. Oropharynx not erythematous without lesions. Tonsils not enlarged and without exudate, no drooling, no hoarseness, no trismus, uvula midline. NECK: Supple. No lymphadenopathy CHEST: Clear to auscultation, breath sounds equal. No wheezing, rhonchi, rales, or stridor. No respiratory distress, speaks in full sentences. HEART: Regular rate and rhythm. No murmur heard. SKIN: Warm, dry, no rash. NEURO: Alert and oriented x3. PSYCH: Normal mood and affect Course Course Emergency Course: Patient is aware of diagnosis, understands and agrees to treatment plan. Anticipatory guidance given. Patient agrees to follow-up as directed and is aware of reasons to seek care at the emergency department. Portions of this record may have been created with voice recognition software Level of Care: Express Care Visit Vital Signs Vital signs: Reviewed. MDM - URI/Sore Throat MDM Narrative Medical decision making narrative: Differential diagnosis considered: Veliz virus, strep pharyngitis, allergic rhinitis, upper respiratory tract infection, sinusitis, rhinosinusitis, nasopharyngitis. viral pharyngitis, otitis media, otitis externa, pneumonia, bronchitis, viral cough syndrome, viral syndrome, and influenza. Exam findings show no acute concerns or changes; patient is non-toxic appearing and is in no distress. Patient is appropriate for outpatient treatment and follow-up. Lab Data Attestation: I reviewed the patient's lab results. Critical Care Time Critical Care Time Critical Care Time: No Discharge Plan Discharge Clinical Impression: Pharyngitis Patient Disposition: Home Condition: Stable Instructions: Pharyngitis (ED) Additional Instructions: Your rapid strep swab was negative today at [facility]. A throat culture will be sent to the laboratory for further testing. If the test is positive, you will receive a phone call within 48 hours and an appropriate antibiotic will be initiated at that time. Your symptoms are likely due to a viral illness, which is not treated with antibiotics. Viral symptoms can be present for up to a few weeks. -Alternate Tylenol and Motrin per package directions for fever or pain. -Antihistamine medication such as Benadryl at night and Zyrtec during the day can help improve symptoms. -Eat and drink things that are easy to swallow, like tea or soup, or popsicles to suck on. -Oral rinses such as: Salt water gargles and/or may use topical anesthetic (eg. Chloraseptic spray) or lozenges to relieve dryness or throat pain). -Frequent hand washing or hand pool nurse is one of the best ways to prevent spread of infection. -Follow up with primary care provider in 2-3 days if condition is not improving; or seek ER visit if you have trouble breathing, cannot drink enough fluids, have muffled voice, difficulty opening your mouth, or severe swelling. Patient Language: Chadian Prescriptions: New methylprednisolone [Medrol (Allen)] 4 mg tablets,dose pack See Rx Instructions .ROUTE .COMPLEX Qty: 21 0RF Rx Instructions: orally per package directions Follow-up/Referrals: UNKNOWN,DOCTOR [Primary Care Provider] Time of Disposition: 14:01
[2025-01-22 13:40] VITALS: BP 130/68; PULSE 90; RESP 20; TEMP 36.8; O2SAT 100
[2025-01-22 13:59] LABS: EDSTREPNEGPOS1 Negative (Negative)
== END 2025-01-22 14:05 | disposition home or self-care (01) ==
PROVIDERS: Emergency Provider Nurse Practitioner
DX: J02.9 Acute pharyngitis, unspecified (principal); Z85.41 Personal history of malignant neoplasm of cervix uteri
CPT/HCPCS: 87081; 87880; 99213; G0463

== ENCOUNTER 2025-03-20 17:30 | Emergency (ER) | payer OTHER, SELFPAY ==
[2025-03-20 17:38] VITALS: BP 118/75; PULSE 75; RESP 18; TEMP 36.5; O2SAT 100
--- NOTE | 2025-03-20 17:39 | ED_ITS ---
HPI - URI/Sore Throat General Chief Complaint: Upper Respiratory Infection Stated Complaint: sinus congestion Time Seen by Provider: 03/20/25 17:39 Source: patient Mode of arrival: ambulatory Limitations: no limitations History of Present Illness HPI Narrative: 40-year-old female presents with complaint of sinus pressure, postnasal drainage, runny nose, irritated throat for 12 days. Worsening of sinus pressure today. Has tried [id number] Tylenol severe sinus And Tamiflu. All systems reviewed and negative except as noted above. Related Data Allergies Allergy/AdvReac Type Severity Reaction Status Date / Time Sulfa (Sulfonamide AdvReac Abdominal Verified 03/20/25 17:36 Antibiotics) Pain PMFSH Past Medical History Medical History Carpal tunnel syndrome Cervical cancer Surgical History Surgical History History of ankle surgery LT History of carpal tunnel surgery Bilateral History of hysterectomy History of right knee surgery Meniscus Family History Family History Father Alive and well Mother Cervical cancer Social History Social History Tobacco type: cigarettes Second hand tobacco smoke exposure: No Alcohol intake: current Substance use: never Living arrangements: with family Occupation/Education: occupation Gender identity (if verbalized by the patient): Female Sexual Orientation (if Verbalized by the Patient): Straight or Heterosexual Comments At time of signature, agree with nursing past medical, surgical, social and family history. There is no relevant family history pertinent to the presenting complaint. Exam Narrative: GENERAL: This is a well-nourished, well-developed patient, in no apparent distress. HEAD: normocephalic, atraumatic. EYES: PERRL. Sclera clear/white. Vision is grossly intact. EARS: External ears normal, auditory canals clear and without drainage, TMs normal without perforation. Hearing grossly intact. NOSE: External nose normal with purulent nasal drainage. Erythema and swelling to nares. Maxillary sinus tenderness on palpation bilaterally. THROAT: Mucous membranes moist, Erythema postnasal drainage. No swelling or exudates NECK: Neck supple, non-tender without lymphadenopathy, masses or thyromegaly. CARDIOVASCULAR: Regular rate and rhythm without murmurs, gallops, or rubs. RESPIRATORY: Clear to auscultation. Breath sounds equal bilaterally. No wheezes, rales, or rhonchi. SKIN: warm, Dry, intact with no suspicious lesions or rash, good texture and turgor. NEURO: awake, alert, and oriented to person, place and time. There were no obvious focal neurologic abnormalities. EXTREMITIES: No joint tenderness, effusion, or edema noted. No calf tenderness. Negative Homans sign bilaterally. BACK: Nontender without deformity. No CVA tenderness. Course Course Level of Care: Express Care Visit Vital Signs Vital signs: Vital Signs Temperature 36.5 C 03/20/25 17:38 Pulse Rate 75 03/20/25 17:38 Respiratory Rate 18 03/20/25 17:38 Blood Pressure 118/75 03/20/25 17:38 Pulse Oximetry 100 03/20/25 17:38 Oxygen Delivery Room Air 03/20/25 17:38 Temperature 36.5 C 03/20/25 17:38 Pulse Rate 75 03/20/25 17:38 Respiratory Rate 18 03/20/25 17:38 Blood Pressure 118/75 03/20/25 17:38 Pulse Oximetry 100 03/20/25 17:38 Oxygen Delivery Room Air 03/20/25 17:38 Reviewed MDM - URI/Sore Throat MDM Narrative Medical decision making narrative: will treat for bacterial sinusitis due to duration of symptoms and exam findings. Patient agrees plan of care. Differential Diagnosis Differential diagnosis: Likely upper respiratory infection, sinusitis and viral infection Discharge Plan Discharge Clinical Impression: Acute bacterial sinusitis Patient Disposition: Home Condition: Stable Instructions: Antibiotic Form, Sinusitis (ED) Additional Instructions: take medications as prescribed. Take Tylenol or ibuprofen every 6-8 hours as needed for pain. Drink at least 64 oz water a day. See your doctor if not improving. Patient Language: Niuean Prescriptions: New fluticasone propionate [Flonase Allergy Relief] 50 mcg/actuation spray,suspension 1 spray intranasal BID Qty: 16 0RF Rx Instructions: administer into each nostril amoxicillin-pot clavulanate 875-125 mg tablet 1 tablet PO Q12H 7 Days Qty: 14 0RF pseudoephedrine HCl [Nasal Decongestant (pseudoeph)] 30 mg tablet 30 mg PO Q4-6H PRN (Reason: nasal congestion) Qty: 20 0RF Rx Instructions: DNExceed 4 doses/24h Follow-up/Referrals: Carlos Manuel,Khushi Mar, [employer] [Primary Care Provider, Unknown] Time of Disposition: 17:48
== END 2025-03-20 17:58 | disposition home or self-care (01) ==
PROVIDERS: Emergency Provider Nurse Practitioner Family; PCP Nurse Practitioner Family
DX: J01.90 Acute sinusitis, unspecified (principal); Z72.0 Tobacco use; Z85.41 Personal history of malignant neoplasm of cervix uteri
CPT/HCPCS: 99213; G0463